=== PATIENT | female | born 1955 | race Caucasian/White ===

== ENCOUNTER 2016-12-04 08:26 | Emergency (ER) | payer BC ==
--- NOTE | 2016-12-04 08:51 | EDM.PDOC ---
ED HPI GENERAL MEDICAL PROBLEM - General Chief Complaint: Chest Pain Stated Complaint: CHEST PAIN Time Seen by Provider: 12/04/16 08:31 Source of Information: Reports: Patient, RN Notes Reviewed History Limitations: Reports: No Limitations - History of Present Illness INITIAL COMMENTS - FREE TEXT/NARRATIVE: The patient states that she developed an ache felt behind her left breast this past 11/29/2016. It has been waxing and waning since, and is not inducible or modifiable with patient activity or position. She states that it occasionally crosses her chest to the right side, and occasionally is felt through to the back between her scapulae, otherwise, it does not radiate. She has no associated symptoms of nausea, dyspnea, diaphoresis, or sense of impending doom, however, she did have a hot flash this morning while at work. Here in the ED, it is noted that her oxygen saturation is 100% on room air. The patient states that she has had similar symptoms, perhaps 3 times over the past 20 years, and prior workups have always been negative. She has been told that her symptoms are due to anxiety, however, she states that the symptoms have not lasted this long previously. Prior cardiac workups have included ECGs, but she has never undergone a stress test. The patient states that her last general physical exam was about 3 years ago, per Dr. Gomes, which included tests such as cholesterol, and that everything came back normal. The patient's PCP is Linda Clifton. Chest Pain Score (Numeric/FACES): 5 - Related Data Allergies Allergy/AdvReac Type Severity Reaction Status Date / Time amoxicillin Allergy Rash Verified 12/04/16 08:38 Home Meds: Home Meds . [No Known Home Meds] 12/04/16 [History] Past Medical History - Past Surgical History GI Surgical History: Reports: Appendectomy, Other (See Below) (Hemorrhoidectomy) Female Surgical History: Reports: Tubal Ligation, Other (See Below) ( Colposcopy) Social & Family History - Tobacco Use Smoking Status *Q: Current Every Day Smoker Years of Tobacco use: 30 Packs/Tins Daily: 0.5 Packs/Tins Daily Comment: Down from 1 ppd - Caffeine Use Caffeine Use: Reports: None - Alcohol Use Alcohol Use History: Yes Alcohol Use Frequency: Socially - Recreational Drug Use Recreational Drug Use: No - Living Situation & Occupation Living situation: Reports: , with Family (Son) Occupation: Employed (RN) ED ROS GENERAL - Review of Systems Review Of Systems: See Below Constitutional: Reports: No Symptoms HEENT: Reports: No Symptoms Respiratory: Reports: No Symptoms Cardiovascular: Reports: No Symptoms Endocrine: Reports: No Symptoms GI/Abdominal: Reports: No Symptoms : Reports: No Symptoms Musculoskeletal: Reports: No Symptoms Skin: Reports: No Symptoms Neurological: Reports: No Symptoms Psychiatric: Reports: No Symptoms Hematologic/Lymphatic: Reports: No Symptoms Immunologic: Reports: No Symptoms ED EXAM, GENERAL - Physical Exam Exam: See Below Exam Limited By: No Limitations General Appearance: Alert, WD/WN, No Apparent Distress Eye Exam: Bilateral Eye: Normal Inspection Ears: Normal External Exam, Hearing Grossly Normal Nose: Normal Inspection, No Blood Throat/Mouth: Normal Inspection, Normal Lips, Normal Voice, No Airway Compromise Head: Atraumatic, Normocephalic Neck: Normal Inspection, Full Range of Motion Respiratory/Chest: No Respiratory Distress, Lungs Clear, Normal Breath Sounds, No Accessory Muscle Use, Chest Non-Tender Cardiovascular: Normal Peripheral Pulses, Regular Rate, Rhythm, No Gallop, No JVD, No Murmur, No Rub Peripheral Pulses: 4+: Radial (L), Radial (R) GI/Abdominal: Normal Bowel Sounds, Soft, Non-Tender, No Organomegaly, No Distention, No Abnormal Bruit, No Mass (Female) Exam: Deferred Rectal (Female) Exam: Deferred Back Exam: Normal Inspection, Full Range of Motion, NT Extremities: Normal Inspection, Normal Range of Motion, No Pedal Edema, Normal Capillary Refill Neurological: Alert, Oriented, Normal Cognition, No Motor/Sensory Deficits Psychiatric: Normal Affect Skin Exam: Warm, Dry, Intact, Normal Color, No Rash Lymphatic: No Adenopathy EKG INTERPRETATION EKG Date: 12/04/16 Time: 08:35 Rhythm: NSR Rate (Beats/Min): 92 [place]: Normal P-Wave: Present QRS: Normal ST-T: Depressed (lateral leads) QT: Normal Comparison: NA - No Prior EKG Course - Vital Signs Last Recorded V/S: Last Vital Signs Temp 36.3 C 12/04/16 08:30 Pulse 74 12/04/16 10:23 Resp 22 H 12/04/16 10:23 BP 119/78 12/04/16 10:23 Pulse Ox 97 12/04/16 10:23 - Orders/Labs/Meds Orders: Active Orders 24 hr Category Date Time Status EKG Documentation Completion [RC] STAT Care 12/04/16 08:46 Active Orthostatic Vital Signs [RC] STAT Care 12/04/16 08:48 Active Labs: Laboratory Tests 12/04/16 12/04/16 12/04/16 Range/Units 08:40 08:40 08:40 WBC 7.75 (3.98-10.04) K/mm3 RBC 4.37 (3.98-5.22) M/mm3 Hgb 13.3 (11.2-15.7) gm/L Hct 40.4 (34.1-44.9) % MCV 92.4 (79.4-94.8) fl MCH 30.4 (25.6-32.2) pg MCHC 32.9 (32.2-35.5) g/dl RDW Std Deviation 43.2 (36.4-46.3) fL Plt Count 240 (182-369) K/mm3 MPV 11.0 (9.4-12.3) fl Neutrophils % (Manual) 56 (40-60) % Band Neutrophils % 0 (0-10) % Lymphocytes % (Manual) 40 (20-40) % Atypical Lymphs % 0 % Monocytes % (Manual) 3 (2-10) % Eosinophils % (Manual) 1 (0.7-5.8) % Basophils % (Manual) 0 L (0.1-1.2) Platelet Estimate Adequate RBC Morph Comment Normal PT 10.5 (8.0-13.0) SECONDS INR 0.97 APTT 26 (22-36) SECONDS D-Dimer, Quantitative 0.20 (0.19-0.59) mg/L Puncture Site ABG pH (7.35-7.45) ABG pCO2 (35.0-45.0) mmHg ABG pO2 (80.0-100.0) mmHg ABG HCO3 (22.0-26.0) meq/L ABG O2 Saturation (96.0-97.0) % ABG Base Excess (-2-2.0) Taurus Test A-a Gradient mmHg O2 Delivery Device FiO2 (21.00-100.00) % Sodium 141 (136-145) mEq/L Potassium 4.4 (3.5-5.1) mEq/L Chloride 105 (98-107) mEq/L Carbon Dioxide 29 (21-32) mEq/L Anion Gap 11.4 (5-15) BUN 15 (7-18) mg/dL Creatinine 0.9 (0.55-1.02) mg/dL Est Cr Clr Drug Dosing 62.23 mL/min Estimated GFR (MDRD) > 60 (>60) mL/min BUN/Creatinine Ratio 16.7 (14-18) Glucose 100 (74-106) mg/dL Calcium 9.2 (8.5-10.1) mg/dL Magnesium 2.0 (1.8-2.4) mg/dl Total Bilirubin 0.2 (0.2-1.0) mg/dL AST 15 (15-37) U/L ALT 22 (14-59) U/L Alkaline Phosphatase 88 (46-116) U/L Troponin I < 0.017 (0.00-0.056) ng/mL Ioe-K-Kqasuwadjht Pept 35 (0-125) pg/mL Total Protein 7.1 (6.4-8.2) g/dl Albumin 3.9 (3.4-5.0) g/dl Globulin 3.2 gm/dL Albumin/Globulin Ratio 1.2 (1-2) TSH 3rd Generation 1.946 (0.358-3.74) uIU/mL Urine Color (Yellow) Urine Appearance (Clear) Urine pH (5.0-8.0) Ur Specific [place] (1.005-1.030) Urine Protein (Negative) Urine Glucose (UA) (Negative) Urine Ketones (Negative) Urine Occult Blood (Negative) Urine Nitrite (Negative) Urine Bilirubin (Negative) Urine Urobilinogen (0.2-1.0) Ur Leukocyte Esterase (Negative) Urine RBC (0-5) /hpf Urine WBC (0-5) /hpf Ur Epithelial Cells (0-5) /hpf Urine Bacteria (FEW) /hpf Urine Mucus (FEW) /hpf Urine HCG, Qual (NEGATIVE) 12/04/16 12/04/16 12/04/16 Range/Units 08:48 09:45 09:45 WBC (3.98-10.04) K/mm3 RBC (3.98-5.22) M/mm3 Hgb (11.2-15.7) gm/L Hct (34.1-44.9) % MCV (79.4-94.8) fl MCH (25.6-32.2) pg MCHC (32.2-35.5) g/dl RDW Std Deviation (36.4-46.3) fL Plt Count (182-369) K/mm3 MPV (9.4-12.3) fl Neutrophils % (Manual) (40-60) % Band Neutrophils % (0-10) % Lymphocytes % (Manual) (20-40) % Atypical Lymphs % % Monocytes % (Manual) (2-10) % Eosinophils % (Manual) (0.7-5.8) % Basophils % (Manual) (0.1-1.2) Platelet Estimate RBC Morph Comment PT (8.0-13.0) SECONDS INR APTT (22-36) SECONDS D-Dimer, Quantitative (0.19-0.59) mg/L Puncture Site Rt radial ABG pH 7.41 (7.35-7.45) ABG pCO2 38.0 (35.0-45.0) mmHg ABG pO2 68.0 L (80.0-100.0) mmHg ABG HCO3 23.6 (22.0-26.0) meq/L ABG O2 Saturation 95.7 L (96.0-97.0) % ABG Base Excess -0.3 (-2-2.0) Taurus Test Positive A-a Gradient 19 mmHg O2 Delivery Device Room air FiO2 21.00 (21.00-100.00) % Sodium (136-145) mEq/L Potassium (3.5-5.1) mEq/L Chloride (98-107) mEq/L Carbon Dioxide (21-32) mEq/L Anion Gap (5-15) BUN (7-18) mg/dL Creatinine (0.55-1.02) mg/dL Est Cr Clr Drug Dosing mL/min Estimated GFR (MDRD) (>60) mL/min BUN/Creatinine Ratio (14-18) Glucose (74-106) mg/dL Calcium (8.5-10.1) mg/dL Magnesium (1.8-2.4) mg/dl Total Bilirubin (0.2-1.0) mg/dL AST (15-37) U/L ALT (14-59) U/L Alkaline Phosphatase (46-116) U/L Troponin I (0.00-0.056) ng/mL Vaj-H-Phtiwqbsazc Pept (0-125) pg/mL Total Protein (6.4-8.2) g/dl Albumin (3.4-5.0) g/dl Globulin gm/dL Albumin/Globulin Ratio (1-2) TSH 3rd Generation (0.358-3.74) uIU/mL Urine Color Light yellow (Yellow) Urine Appearance Clear (Clear) Urine pH 6.5 (5.0-8.0) Ur Specific [place] 1.010 (1.005-1.030) Urine Protein Negative (Negative) Urine Glucose (UA) Negative (Negative) Urine Ketones Negative (Negative) Urine Occult Blood Trace-lysed H (Negative) Urine Nitrite Negative (Negative) Urine Bilirubin Negative (Negative) Urine Urobilinogen 0.2 (0.2-1.0) Ur Leukocyte Esterase Negative (Negative) Urine RBC 5-10 H (0-5) /hpf Urine WBC 0-5 (0-5) /hpf Ur Epithelial Cells 0-5 (0-5) /hpf Urine Bacteria Few (FEW) /hpf Urine Mucus Not seen (FEW) /hpf Urine HCG, Qual Negative (NEGATIVE) - Re-Assessments/Exams Free Text/Narrative Re-Assessment/Exam: 12/04/16 09:34 Two-view chest radiograph appears to be grossly normal. Cardiac silhouette is within normal limits. No pulmonary vascular congestion. No pleural effusions. No focal infiltrate. No pneumothorax. Hyperinflation and bilateral diaphragmatic flattening, consistent with COPD, noted. Formal read per the Radiologist pending. 12/04/16 10:39 Test results discussed with the patient. The patient's oxygen saturation was noted to be 100% on room air, suggesting hyperventilation, which could cause the patient's symptoms, however, the patient's ABG shows that she is not hyperventilating. The remainder of her workup was unremarkable. Based on her history and physical examination, it appears that the patient's symptoms are musculoskeletal in etiology - likely a spasm of an intercostal muscle, although also possibly due to an irritated intercostal nerve, as she complains of some back pain, as well. I am recommending [id number] ibuprofen as needed. Departure - Departure Time of Disposition: 10:41 Disposition: Home, Self-Care 01 Condition: Good Clinical Impression: Musculoskeletal chest pain - Discharge Information Referrals: Kiki Clifton, PHOTO FINISH PHOTOGRAPHER [Primary Care Provider] - Forms: ED Department Discharge Additional Instructions: You were seen in the emergency room for left-sided chest pain that occasionally crossed to the right, as well as going through to your back. Workup in the ER included blood work, an ABG, a urinalysis, a urine test, an ECG, and a chest x-ray. Your entire workup was unremarkable. Your symptoms are MOST LIKELY musculoskeletal in etiology, such as spasm of an intercostal muscle, or irritation of an intercostal nerve. We recommend that you take [id number]-[id number] ibuprofen as needed. We recommend you notify the office of Linda Clifton of today's ER visit. If any other problems, please do not hesitate to return to the ER. - My Orders Last 24 Hours: My Active Orders 12/04/16 08:46 EKG Documentation Completion [RC] STAT 12/04/16 08:48 Orthostatic Vital Signs [RC] STAT - Assessment/Plan Last 24 Hours: My Active Orders 12/04/16 08:46 EKG Documentation Completion [RC] STAT 12/04/16 08:48 Orthostatic Vital Signs [RC] STAT
--- NOTE | 2016-12-04 09:28 | CR ---
Chest: Two views of the chest were obtained. Comparison: Previous chest x-ray 10/14/09. Heart size is normal. Upper mediastinum is within normal limits. Lungs are clear but slightly hyperinflated. Mild scoliosis is noted within the spine. Impression: 1. Probable emphysematous change. 2. Other incidental finding. Nothing acute is appreciated. Diagnostic code #2
[2016-12-04 10:49] VITALS: BP 110/76
== END 2016-12-04 11:00 | disposition home or self-care (01) ==
LOC: JD.ED 08:26
DX: R07.89 Other chest pain (principal); F17.210 Nicotine dependence, cigarettes, uncomplicated; Z98.51 Tubal ligation status; Z98.890 Other specified postprocedural states; Z88.1 Allergy status to other antibiotic agents
CPT/HCPCS: 36415; 36600; 71020; 71020-26; 80053; 81001; 81025; 82803; 83735; 83880; 84443; 84484; 85025; 85379; 85610; 85730; 93005; 99283; 99285-25

== ENCOUNTER 2019-05-09 07:43 | Day surgery (SDC) | payer BC ==
[~2019-05-09 07:43] MED LIST: Lactated Ringers 1,000 ML IV SCH; Lidocaine 1%/Sod Bicarbonate in NS 8.4% 1 ML Syringe IDERM PRN; Sodium Chloride 0.9% 10 ML Syringe FLUSH PRN
[2019-05-09] MEDS ORDERED: Midazolam 1 MG/ML 2 ML SDV ONE (08:04)
[2019-05-09] MEDS ORDERED: Propofol 200 MG/20 ML SDV ONE (08:10)
--- NOTE | 2019-05-09 08:18 | PCM.PREANE ---
Preanesthetic Assessment - Procedure Proposed Procedure: colonoscopy - Anesthesia/Transfusion/Family Hx Anesthesia History: Prior Anesthesia Without Reaction Family History of Anesthesia Reaction: No Transfusion History: No Prior Transfusion(s) - Review of Systems General: No Symptoms Pulmonary: No Symptoms Cardiovascular: No Symptoms Gastrointestinal: Nausea Neurological: No Symptoms Other: Reports: Easy Bruising - Physical Assessment NPO Status Date: 05/08/19 NPO Status Time: 00:00 Height: 1.7 m Weight: 70.9 kg ASA Class: 2 Mental Status: Alert & Oriented x3 Airway Class: Mallampati = 1 Dentition: Reports: Normal Dentition, Rippey(s) Thyro-Mental Finger Breadths: 3 Mouth Opening Finger Breadths: 3 ROM/Head Extension: Full Lungs: Clear to Auscultation, Normal Respiratory Effort Cardiovascular: Regular Rate, Regular Rhythm - Allergies Allergies/Adverse Reactions: Allergies Allergy/AdvReac Type Severity Reaction Status Date / Time amoxicillin Allergy Rash Verified 05/08/19 10:32 - Blood Blood Available: No Product(s) Available: None - Anesthesia Plan Pre-Op Medication Ordered: None - Acknowledgements Anesthesia Type Planned: MAC Pt an Appropriate Candidate for the Planned Anesthesia: Yes Alternatives and Risks of Anesthesia Discussed w Pt/Guardian: Yes Pt/Guardian Understands and Agrees with Anesthesia Plan: Yes PreAnesthesia Questionnaire HEENT History: Reports: Impaired Vision, Other (See Below) Other HEENT History: cataract Cardiovascular History: Reports: None Respiratory History: Reports: None Gastrointestinal History: Reports: None Genitourinary History: Reports: None 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: , Spontaneous Musculoskeletal History: Reports: None Neurological History: Reports: Other (See Below) Other Neuro History: degenerative disc disease at L5-S1 Psychiatric History: Reports: None Endocrine/Metabolic History: Reports: None Hematologic History: Reports: None Immunologic History: Reports: None Oncologic (Cancer) History: Reports: None Dermatologic History: Reports: Eczema, Other (See Below) Other Dermatologic History: basal cell carcinoma, lichen sclerosis - Past Surgical History Head Surgeries/Procedures: Reports: None HEENT Surgical History: Reports: Other (See Below) Other HEENT Surgeries/Procedures: basal cell removed from eyelid Cardiovascular Surgical History: Reports: None Respiratory Surgical History: Reports: None GI Surgical History: Reports: Appendectomy, Colonoscopy, Other (See Below) Other GI Surgeries/Procedures: hemrrhoidectomy Female Surgical History: Reports: Tubal Ligation, Other (See Below) Endocrine Surgical History: Reports: None Neurological Surgical History: Reports: None Musculoskeletal Surgical History: Reports: None Oncologic Surgical History: Reports: None - SUBSTANCE USE Smoking Status *Q: Former Smoker Tobacco Use Within Last Twelve Months: Vaping Second Hand Smoke Exposure: No Days Per Week of Alcohol Use: 7 Number of Drinks Per Day: 1 Total Drinks Per Week: 7 Recreational Drug Use History: No - HOME MEDS Home Medications: Home Meds Clobetasol [Clobetasol 0.05%] 1 dose TOP BID 05/08/19 [History] Cyclobenzaprine HCl 10 mg PO TID PRN 05/08/19 [History] Meloxicam 15 mg PO DAILY 05/08/19 [History] - CURRENT (IN HOUSE) MEDS Current Meds: Current Medications Lactated Ringer's (Ringers, Lactated) 1,000 mls @ 125 mls/hr IV ASDIRECTED SHADY Stop: 05/09/19 23:00 Lidocaine/Sodium Bicarbonate (Buffered Lidocaine 1% In Ns 8.4%) 0.25 ml IDERM ONETIME PRN PRN Reason: Prior to IV Start Stop: 05/09/19 18:00 Sodium Chloride (Saline Flush) 10 ml FLUSH ASDIRECTED PRN PRN Reason: Keep Vein Open Stop: 05/09/19 18:00 Discontinued Medications Midazolam HCl (Versed 1 Mg/Ml) Confirm Administered Dose 2 mg .ROUTE .STK-MED ONE Stop: 05/09/19 08:05 Propofol (Diprivan 20 Ml) Confirm Administered Dose 400 mg .ROUTE .STK-MED ONE Stop: 05/09/19 08:11
--- NOTE | 2019-05-09 09:28 | PCM.PRNOTE ---
- Free Text/Narrative Note: Date: 05/09/2019 Procedure: screening colonoscopy Endoscopist: Benedict Wynne MD Findings: external hemorrhoids. Excellent prep. Ileocecal valve visualized. One single subcentimeter sessile polyp in sigmoid colon biopsied with hot forceps. Detailed Report: The patient was taken to the endoscopy suite and placed in left lateral decubitus position. Monitored anesthesia care was initiated, and timeout was performed. Visual inspection of the anus was significant for external hemorrhoidal disease. Digital rectal exam was significant for minor benign feeling narrowing or stricture in the anal canal. The lubricated colonoscope was inserted and advanced all the way to the ileocecal valve. The prep was noted to be excellent. On slow withdrawal of the scope, mucosal surfaces were carefully inspected. No mucosal abnormalities were noted until about 30 cm from the anal verge, a small subcentimeter sessile polyp was identified. This was biopsied with forceps, and the base of the polyp was cauterized. No diverticular disease was noted. No hemorrhoidal disease was noted on retroflexion of the scope in the rectum. The patient tolerated the procedure well. Benedict Wynne MD General Surgery
--- NOTE | 2019-05-09 09:29 | PCM48HPAN ---
Post Anesthesia Note - EVALUATION WITHIN 48HRS OF ANESTHETIC Vital Signs in Normal Range: Yes Patient Participated in Evaluation: Yes Respiratory Function Stable: Yes Airway Patent: Yes Cardiovascular Function Stable: Yes Hydration Status Stable: Yes Pain Control Satisfactory: Yes Nausea and Vomiting Control Satisfactory: Yes Mental Status Recovered: Yes Vital Signs: Last Vital Signs Temp 36.2 C 05/09/19 07:55 Pulse 89 05/09/19 07:55 Resp 16 05/09/19 07:55 BP 134/85 05/09/19 07:55 Pulse Ox 100 05/09/19 07:55
[2019-05-09 10:07] VITALS: BP 130/75; PULSE 67
== END 2019-05-09 10:12 | disposition home or self-care (01) ==
LOC: JD.SDS 07:43
PROVIDERS: ATTEND Surgery
DX: Z12.11 Encounter for screening for malignant neoplasm of colon (principal); D12.5 Benign neoplasm of sigmoid colon; K64.4 Residual hemorrhoidal skin tags; M51.37 Other intervertebral disc degeneration, lumbosacral region; Z87.891 Personal history of nicotine dependence; Z88.0 Allergy status to penicillin; Z79.1 Long term (current) use of non-steroidal anti-inflammatories (NSAID)
CPT/HCPCS: 45384; J2250; J2704; J7120; 00812

== ENCOUNTER 2022-06-07 09:33 | Emergency (ER) | payer BC, OTHER ==
[2022-06-07] MEDS ORDERED: Ibuprofen 600 MG Tab PO ONE (09:40)
[2022-06-07 12:17] VITALS: BP 133/64; PULSE 68
== END 2022-06-07 11:55 | disposition home or self-care (01) ==
LOC: JD.ED 09:33
DX: F41.9 Anxiety disorder, unspecified (principal); I10 Essential (primary) hypertension; Z86.16 Personal history of COVID-19; Z88.0 Allergy status to penicillin; Z87.891 Personal history of nicotine dependence
CPT/HCPCS: 36415; 71046; 71046-26; 80053; 84484; 85025; 85379; 93005; 93010; 99284; 99285